=== PATIENT | female | born 1930 | race Caucasian/White ===

== ENCOUNTER 2018-09-04 16:51 | Emergency (ER) | payer MEDICARE, BC ==
--- NOTE | 2018-09-04 17:38 | EDM.PDOC ---
ED HPI GENERAL MEDICAL PROBLEM - General Chief Complaint: Gastrointestinal Problem Stated Complaint: SEVERE NAUSEA Time Seen by Provider: 09/04/18 17:38 Source of Information: Reports: Patient History Limitations: Reports: No Limitations - Related Data Allergies Allergy/AdvReac Type Severity Reaction Status Date / Time naproxen Allergy Nausea Verified 09/04/18 17:32 Penicillins Allergy Rash Verified 09/04/18 17:32 Home Meds: Home Meds Ascorbic Acid 500 mg PO DAILY 07/06/14 [History] Aspirin [Adult Low Dose Aspirin EC] 81 mg PO DAILY 07/06/14 [History] Calcium Carbonate/Vitamin D2 [Oyster Shell Calcium-Vit D Tab] 1 tab PO DAILY [History] Cholecalciferol (Vitamin D3) [Vitamin D3] 1,000 unit PO DAILY 07/06/14 [History] Clopidogrel [Plavix] 75 mg PO DAILY 07/06/14 [History] Furosemide [Lasix] 20 mg PO DAILY 07/06/14 [History] Isosorbide Mononitrate [Imdur] 90 mg PO DAILY 07/06/14 [History] Latanoprost [Xalatan 0.005% Ophth Soln] 1 drop EYEBOTH DAILY 07/06/14 [History] Metoprolol Succinate [Toprol XL] 25 mg PO DAILY 07/06/14 [History] Multivitamin [Multi Vitamin Daily] 1 tab PO DAILY 07/06/14 [History] Omeprazole 20 mg PO BID 07/06/14 [History] Psyllium with Sucrose [Metamucil] 1 packet PO DAILY 07/06/14 [History] Simvastatin [Zocor] 40 mg PO DAILY 07/06/14 [History] amLODIPine [Norvasc] 2.5 mg PO DAILY 07/06/14 [History] Departure - Discharge Information
[2018-09-04] MEDS ORDERED: Sodium Chloride 0.9% 10 ML Syringe FLUSH PRN (17:42)
[2018-09-04] MEDS ORDERED: Ondansetron 4 MG/2 ML SDV IV ONE (17:44)
[2018-09-04] MEDS ORDERED: diphenhydrAMINE 50 MG/ML SDV IVPUSH ONE (17:44)
--- NOTE | 2018-09-04 17:44 | EDM.PDOC ---
<OdonnellColt - Last Filed: 09/05/18 02:48> ED HPI GENERAL MEDICAL PROBLEM - General Chief Complaint: Gastrointestinal Problem Stated Complaint: SEVERE NAUSEA Time Seen by Provider: 09/04/18 17:38 - Related Data Allergies Allergy/AdvReac Type Severity Reaction Status Date / Time naproxen Allergy Nausea Verified 09/04/18 17:32 Penicillins Allergy Rash Verified 09/04/18 17:32 Home Meds: Home Meds Ascorbic Acid 500 mg PO DAILY 07/06/14 [History] Aspirin [Adult Low Dose Aspirin EC] 81 mg PO DAILY 07/06/14 [History] Calcium Carbonate/Vitamin D2 [Oyster Shell Calcium-Vit D Tab] 1 tab PO DAILY [History] Cholecalciferol (Vitamin D3) [Vitamin D3] 1,000 unit PO DAILY 07/06/14 [History] Clopidogrel [Plavix] 75 mg PO DAILY 07/06/14 [History] Furosemide [Lasix] 20 mg PO DAILY 07/06/14 [History] Isosorbide Mononitrate [Imdur] 90 mg PO DAILY 07/06/14 [History] Latanoprost [Xalatan 0.005% Ophth Soln] 1 drop EYEBOTH DAILY 07/06/14 [History] Metoprolol Succinate [Toprol XL] 25 mg PO DAILY 07/06/14 [History] Multivitamin [Multi Vitamin Daily] 1 tab PO DAILY 07/06/14 [History] Omeprazole 20 mg PO BID 07/06/14 [History] Psyllium with Sucrose [Metamucil] 1 packet PO DAILY 07/06/14 [History] Simvastatin [Zocor] 40 mg PO DAILY 07/06/14 [History] amLODIPine [Norvasc] 2.5 mg PO DAILY 07/06/14 [History] Course - Vital Signs Last Recorded V/S: Last Vital Signs Temp 36.9 C 09/04/18 21:22 Pulse 67 09/04/18 21:22 Resp 16 09/04/18 21:22 BP 174/77 H 09/04/18 21:22 Pulse Ox 94 L 09/04/18 21:22 - Orders/Labs/Meds Orders: Active Orders 24 hr Category Date Time Status EKG 12 Lead [EKG Documentation Completion] [RC] STAT Care 09/04/18 19:27 Active Peripheral IV Care [RC] . DIRECTED Care 09/04/18 17:43 Active Peripheral IV Insertion Adult [OM.PC] Stat Oth 09/04/18 17:42 Ordered Labs: Laboratory Tests 09/04/18 09/04/18 09/04/18 Range/Units 17:50 17:50 17:50 WBC 9.4 (5.0-10.0) 10^3/uL RBC 4.69 (4.2-5.4) 10^6/uL Hgb 15.3 (12.0-16.0) g/dL Hct 43.6 (37.0-47.0) % MCV 93.0 (80-100) fL MCH 32.6 (27.0-34.0) pg MCHC 35.1 H (33.0-35.0) g/dL Plt Count 205 (150-450) 10^3/uL Neut % (Auto) 90.8 H (42.2-75.2) % Lymph % (Auto) 6.0 L (20.5-50.1) % [place] % (Auto) 3.1 (2-8) % Eos % (Auto) 0.0 L (1.0-3.0) % Baso % (Auto) 0.1 (0.0-1.0) % Sodium 129 L (135-145) mmol/L Potassium 3.5 L (3.6-5.0) mmol/L Chloride 93 L (101-111) mmol/L Carbon Dioxide 19.0 L (21.0-31.0) mmol/L Anion Gap 20.5 BUN 15 (7-18) mg/dL Creatinine 0.8 (0.6-1.3) mg/dL Est Cr Clr Drug Dosing 42.78 mL/min Estimated GFR (MDRD) > 60 BUN/Creatinine Ratio 18.75 Glucose 182 H (74-105) mg/dL Lactic Acid 2.1 (0.5-2.2) mmol/L Calcium 9.6 (8.4-10.2) mg/dl Total Bilirubin 1.5 H (0.2-1.0) mg/dL AST 27 (10-42) IU/L ALT 16 (10-60) IU/L Alkaline Phosphatase 64 (42-121) IU/L Troponin I (0.00-0.02) ng/ml B-Natriuretic Peptide (0-100) pg/ml Total Protein 8.0 (6.7-8.2) g/dl Albumin 4.3 (3.2-5.5) g/dl Globulin 3.7 Albumin/Globulin Ratio 1.16 Lipase 20 L (22-51) U/L Urine Color (YELLOW) Urine Appearance (CLEAR) Urine pH (5.0-9.0) Ur Specific [place] (1.005-1.030) Urine Protein (NEGATIVE) Urine Glucose (UA) (NEGATIVE) Urine Ketones (NEGATIVE) Urine Occult Blood (NEGATIVE) Urine Nitrite (NEGATIVE) Urine Bilirubin (NEGATIVE) Urine Urobilinogen (0.2-1.0) mg/dL Ur Leukocyte Esterase (NEGATIVE) Urine RBC /HPF Urine WBC (0-5/HPF) /HPF Ur Epithelial Cells /HPF Urine Bacteria (0-FEW/HPF) /HPF Urine Mucus /LPF 09/04/18 09/04/18 Range/Units 17:50 21:15 WBC (5.0-10.0) 10^3/uL RBC (4.2-5.4) 10^6/uL Hgb (12.0-16.0) g/dL Hct (37.0-47.0) % MCV (80-100) fL MCH (27.0-34.0) pg MCHC (33.0-35.0) g/dL Plt Count (150-450) 10^3/uL Neut % (Auto) (42.2-75.2) % Lymph % (Auto) (20.5-50.1) % [place] % (Auto) (2-8) % Eos % (Auto) (1.0-3.0) % Baso % (Auto) (0.0-1.0) % Sodium (135-145) mmol/L Potassium (3.6-5.0) mmol/L Chloride (101-111) mmol/L Carbon Dioxide (21.0-31.0) mmol/L Anion Gap BUN (7-18) mg/dL Creatinine (0.6-1.3) mg/dL Est Cr Clr Drug Dosing mL/min Estimated GFR (MDRD) BUN/Creatinine Ratio Glucose (74-105) mg/dL Lactic Acid (0.5-2.2) mmol/L Calcium (8.4-10.2) mg/dl Total Bilirubin (0.2-1.0) mg/dL AST (10-42) IU/L ALT (10-60) IU/L Alkaline Phosphatase (42-121) IU/L Troponin I < 0.02 (0.00-0.02) ng/ml B-Natriuretic Peptide 280 H (0-100) pg/ml Total Protein (6.7-8.2) g/dl Albumin (3.2-5.5) g/dl Globulin Albumin/Globulin Ratio Lipase (22-51) U/L Urine Color Yellow (YELLOW) Urine Appearance Clear (CLEAR) Urine pH 7.0 (5.0-9.0) Ur Specific [place] 1.025 (1.005-1.030) Urine Protein 100 H (NEGATIVE) Urine Glucose (UA) 100 H (NEGATIVE) Urine Ketones 80 H (NEGATIVE) Urine Occult Blood Trace-intact H (NEGATIVE) Urine Nitrite Negative (NEGATIVE) Urine Bilirubin Negative (NEGATIVE) Urine Urobilinogen 0.2 (0.2-1.0) mg/dL Ur Leukocyte Esterase Negative (NEGATIVE) Urine RBC 0-5 /HPF Urine WBC 0-5 (0-5/HPF) /HPF Ur Epithelial Cells Rare /HPF Urine Bacteria Few (0-FEW/HPF) /HPF Urine Mucus Moderate H /LPF Meds: Medications Discontinued Medications Generic Name Dose Route Start Last Admin Trade Name Freq PRN Reason Stop Dose Admin Diphenhydramine HCl 12.5 mg 09/04/18 17:44 09/04/18 17:56 Benadryl IVPUSH 09/04/18 17:45 12.5 mg ONETIME ONE Administration Lactated Ringer's 1,000 mls @ 999 mls/hr 09/04/18 17:45 09/04/18 17:55 Ringers, Lactated IV 999 mls/hr ASDIRECTED GABRIEL Administration Pantoprazole Sodium 40 mg/ 100 mls @ 200 mls/hr 09/04/18 18:16 09/04/18 18:55 Sodium Chloride IV 09/04/18 18:45 200 mls/hr ONETIME ONE Administration Ondansetron HCl 4 mg 09/04/18 17:44 09/04/18 17:56 Zofran IV 09/04/18 17:45 4 mg ONETIME ONE Administration Promethazine HCl 25 mg 09/04/18 19:56 09/04/18 20:27 Phenergan IM 09/04/18 19:57 25 mg ONETIME ONE Administration Sodium Chloride 10 ml 09/04/18 17:42 09/04/18 18:55 Saline Flush FLUSH 10 ml ASDIRECTED PRN Administration Keep Vein Open - Re-Assessments/Exams Free Text/Narrative Re-Assessment/Exam: 09/04/18 22:40 results discussed with pt who states she is fine now. pt got up able to move without further vertigo or problems. states fine to go home and her son states he can be with her tonight and will recheck if there is any changes. states been having this problem on-off past few years and nobody seems to know how to rid of it. Departure - Departure Time of Disposition: 23:05 Disposition: Home, Self-Care 01 Condition: Fair Clinical Impression: Vertigo, Vomiting - Discharge Information Instructions: Vertigo, [id number] Referrals: PCP,None [Primary Care Provider] - Forms: ED Department Discharge Additional Instructions: 1) continue present meds 2) recheck if there is any change or concerns - My Orders Last 24 Hours: My Active Orders 09/04/18 17:42 Peripheral IV Insertion Adult [OM.PC] Stat 09/04/18 17:43 Peripheral IV Care [RC] . DIRECTED - Assessment/Plan Last 24 Hours: My Active Orders 09/04/18 17:42 Peripheral IV Insertion Adult [OM.PC] Stat 09/04/18 17:43 Peripheral IV Care [RC] . DIRECTED <Gautam Alston - Last Filed: 09/05/18 13:12> ED HPI GENERAL MEDICAL PROBLEM - General Source of Information: Reports: Patient History Limitations: Reports: No Limitations - History of Present Illness INITIAL COMMENTS - FREE TEXT/NARRATIVE: Patient comes to the emergency department today with complaints of nausea and vomiting. Since approximately 4:00 this morning she has had quite a bit of nausea and vomiting. She's been unable to keep anything down. She denies any abdominal pain. She denies any diarrhea. She denies any fever or chills. She has had many episodes of this in the past but is never been seen here for at and primarily gets most of her care in [place]. She has had her appendix removed. She still has her gallbladder. One else's been ill. She has not been traveling recently. No hematuria dysuria or urinary frequency. ED ROS GENERAL - Review of Systems Review Of Systems: ROS reveals no pertinent complaints other than HPI. ED EXAM, GI/ABD - Physical Exam Exam: See Below Exam Limited By: No Limitations General Appearance: Alert Eyes: Bilateral: Normal Appearance Ears: Normal External Exam, Normal TMs Nose: Normal Inspection Throat/Mouth: Normal Inspection, Normal Oropharynx Head: Atraumatic, Normocephalic Neck: Normal Inspection, Supple Respiratory/Chest: No Respiratory Distress, Lungs Clear, Normal Breath Sounds, No Accessory Muscle Use, Chest Non-Tender Cardiovascular: Normal Peripheral Pulses, Regular Rate, Rhythm GI/Abdominal Exam: Normal Bowel Sounds, Soft, Non-Tender, No Organomegaly, No Distention, No Abnormal Bruit, No Mass, Pelvis Stable Back Exam: Normal Inspection, Full Range of Motion. No: CVA Tenderness (L), CVA Tenderness (R) Extremities: Normal Inspection, Normal Range of Motion, Non-Tender, Normal Capillary Refill Neurological: Alert, Oriented, Normal Cognition, No Motor/Sensory Deficits Psychiatric: Normal Affect, Normal Mood Skin Exam: Dry, Intact, Cool, Pallor Lymphatic: No Adenopathy Course - Vital Signs Last Recorded V/S: Last Vital Signs Temp 36.9 C 09/04/18 21:22 Pulse 67 09/04/18 21:22 Resp 16 09/04/18 21:22 BP 174/77 H 09/04/18 21:22 Pulse Ox 94 L 09/04/18 21:22 - Orders/Labs/Meds Orders: Active Orders 24 hr Category Date Time Status EKG 12 Lead [EKG Documentation Completion] [RC] STAT Care 09/04/18 19:27 Active Peripheral IV Care [RC] . DIRECTED Care 09/04/18 17:43 Active Peripheral IV Insertion Adult [OM.PC] Stat Oth 09/04/18 17:42 Ordered Labs: Laboratory Tests 09/04/18 09/04/18 09/04/18 Range/Units 17:50 17:50 17:50 WBC 9.4 (5.0-10.0) 10^3/uL RBC 4.69 (4.2-5.4) 10^6/uL Hgb 15.3 (12.0-16.0) g/dL Hct 43.6 (37.0-47.0) % MCV 93.0 (80-100) fL MCH 32.6 (27.0-34.0) pg MCHC 35.1 H (33.0-35.0) g/dL Plt Count 205 (150-450) 10^3/uL Neut % (Auto) 90.8 H (42.2-75.2) % Lymph % (Auto) 6.0 L (20.5-50.1) % [place] % (Auto) 3.1 (2-8) % Eos % (Auto) 0.0 L (1.0-3.0) % Baso % (Auto) 0.1 (0.0-1.0) % Sodium 129 L (135-145) mmol/L Potassium 3.5 L (3.6-5.0) mmol/L Chloride 93 L (101-111) mmol/L Carbon Dioxide 19.0 L (21.0-31.0) mmol/L Anion Gap 20.5 BUN 15 (7-18) mg/dL Creatinine 0.8 (0.6-1.3) mg/dL Est Cr Clr Drug Dosing 42.78 mL/min Estimated GFR (MDRD) > 60 BUN/Creatinine Ratio 18.75 Glucose 182 H (74-105) mg/dL Lactic Acid 2.1 (0.5-2.2) mmol/L Calcium 9.6 (8.4-10.2) mg/dl Total Bilirubin 1.5 H (0.2-1.0) mg/dL AST 27 (10-42) IU/L ALT 16 (10-60) IU/L Alkaline Phosphatase 64 (42-121) IU/L Troponin I (0.00-0.02) ng/ml B-Natriuretic Peptide (0-100) pg/ml Total Protein 8.0 (6.7-8.2) g/dl Albumin 4.3 (3.2-5.5) g/dl Globulin 3.7 Albumin/Globulin Ratio 1.16 Lipase 20 L (22-51) U/L Urine Color (YELLOW) Urine Appearance (CLEAR) Urine pH (5.0-9.0) Ur Specific [place] (1.005-1.030) Urine Protein (NEGATIVE) Urine Glucose (UA) (NEGATIVE) Urine Ketones (NEGATIVE) Urine Occult Blood (NEGATIVE) Urine Nitrite (NEGATIVE) Urine Bilirubin (NEGATIVE) Urine Urobilinogen (0.2-1.0) mg/dL Ur Leukocyte Esterase (NEGATIVE) Urine RBC /HPF Urine WBC (0-5/HPF) /HPF Ur Epithelial Cells /HPF Urine Bacteria (0-FEW/HPF) /HPF Urine Mucus /LPF 09/04/18 09/04/18 Range/Units 17:50 21:15 WBC (5.0-10.0) 10^3/uL RBC (4.2-5.4) 10^6/uL Hgb (12.0-16.0) g/dL Hct (37.0-47.0) % MCV (80-100) fL MCH (27.0-34.0) pg MCHC (33.0-35.0) g/dL Plt Count (150-450) 10^3/uL Neut % (Auto) (42.2-75.2) % Lymph % (Auto) (20.5-50.1) % [place] % (Auto) (2-8) % Eos % (Auto) (1.0-3.0) % Baso % (Auto) (0.0-1.0) % Sodium (135-145) mmol/L Potassium (3.6-5.0) mmol/L Chloride (101-111) mmol/L Carbon Dioxide (21.0-31.0) mmol/L Anion Gap BUN (7-18) mg/dL Creatinine (0.6-1.3) mg/dL Est Cr Clr Drug Dosing mL/min Estimated GFR (MDRD) BUN/Creatinine Ratio Glucose (74-105) mg/dL Lactic Acid (0.5-2.2) mmol/L Calcium (8.4-10.2) mg/dl Total Bilirubin (0.2-1.0) mg/dL AST (10-42) IU/L ALT (10-60) IU/L Alkaline Phosphatase (42-121) IU/L Troponin I < 0.02 (0.00-0.02) ng/ml B-Natriuretic Peptide 280 H (0-100) pg/ml Total Protein (6.7-8.2) g/dl Albumin (3.2-5.5) g/dl Globulin Albumin/Globulin Ratio Lipase (22-51) U/L Urine Color Yellow (YELLOW) Urine Appearance Clear (CLEAR) Urine pH 7.0 (5.0-9.0) Ur Specific [place] 1.025 (1.005-1.030) Urine Protein 100 H (NEGATIVE) Urine Glucose (UA) 100 H (NEGATIVE) Urine Ketones 80 H (NEGATIVE) Urine Occult Blood Trace-intact H (NEGATIVE) Urine Nitrite Negative (NEGATIVE) Urine Bilirubin Negative (NEGATIVE) Urine Urobilinogen 0.2 (0.2-1.0) mg/dL Ur Leukocyte Esterase Negative (NEGATIVE) Urine RBC 0-5 /HPF Urine WBC 0-5 (0-5/HPF) /HPF Ur Epithelial Cells Rare /HPF Urine Bacteria Few (0-FEW/HPF) /HPF Urine Mucus Moderate H /LPF Meds: Medications Discontinued Medications Generic Name Dose Route Start Last Admin Trade Name Freq PRN Reason Stop Dose Admin Diphenhydramine HCl 12.5 mg 09/04/18 17:44 09/04/18 17:56 Benadryl IVPUSH 09/04/18 17:45 12.5 mg ONETIME ONE Administration Lactated Ringer's 1,000 mls @ 999 mls/hr 09/04/18 17:45 09/04/18 17:55 Ringers, Lactated IV 999 mls/hr ASDIRECTED GABRIEL Administration Pantoprazole Sodium 40 mg/ 100 mls @ 200 mls/hr 09/04/18 18:16 09/04/18 18:55 Sodium Chloride IV 09/04/18 18:45 200 mls/hr ONETIME ONE Administration Ondansetron HCl 4 mg 09/04/18 17:44 09/04/18 17:56 Zofran IV 09/04/18 17:45 4 mg ONETIME ONE Administration Promethazine HCl 25 mg 09/04/18 19:56 09/04/18 20:27 Phenergan IM 09/04/18 19:57 25 mg ONETIME ONE Administration Sodium Chloride 10 ml 09/04/18 17:42 09/04/18 18:55 Saline Flush FLUSH 10 ml ASDIRECTED PRN Administration Keep Vein Open - Re-Assessments/Exams Free Text/Narrative Re-Assessment/Exam: 09/04/18 19:[address] Odonnell at this time. - My Orders Last 24 Hours: My Active Orders 09/04/18 17:42 Peripheral IV Insertion Adult [OM.PC] Stat 09/04/18 17:43 Peripheral IV Care [RC] . DIRECTED - Assessment/Plan Last 24 Hours: My Active Orders 09/04/18 17:42 Peripheral IV Insertion Adult [OM.PC] Stat 09/04/18 17:43 Peripheral IV Care [RC] . DIRECTED
[2018-09-04] MEDS ORDERED: Lactated Ringers 1,000 ML IV SCH (17:45)
[2018-09-04] MEDS ORDERED: Pantoprazole 40 MG in Sodium Chloride 0.9% 100 ML IV ONE (18:16)
[2018-09-04 18:20] LABS: ANION GAP 20.5; CHLORIDE,CL 93 mmol/L (101-111); SODIUM,NA 129 mmol/L (135-145)
[2018-09-04] MEDS ORDERED: Promethazine 25 MG/ML SDV IM ONE (19:56)
[2018-09-04 21:23] VITALS: BP 174/77
== END 2018-09-04 23:05 | disposition home or self-care (01) ==
LOC: DL.ED 16:51
DX: R42 Dizziness and giddiness (principal); R11.2 Nausea with vomiting, unspecified; Z88.8 Allergy status to other drugs, medicaments and biological substances; Z88.0 Allergy status to penicillin; Z79.82 Long term (current) use of aspirin
CPT/HCPCS: 36415; 70450; 71045; 74019; 80053; 81001; 83605; 83690; 83880; 84484; 85025; 93005; 96361; 96372; 96374; 96375; 99285; C9113; J1200; J2405; J2550; J7050; J7120

== ENCOUNTER 2020-07-09 22:49 | Emergency (ER) | payer MEDICARE, BC ==
--- NOTE | 2020-07-09 23:12 | EDM.PDOC ---
ED HPI GENERAL MEDICAL PROBLEM - General Chief Complaint: Cardiovascular Problem Stated Complaint: HIGH BLOOD PRESSURE Time Seen by Provider: 07/09/20 23:10 Source of Information: Reports: Patient History Limitations: Reports: No Limitations - History of Present Illness INITIAL COMMENTS - FREE TEXT/NARRATIVE: states had BP check just before bedtime and was 200s/100s. denies CP/SOB/KOTHARI. denies stress - Related Data Allergies Allergy/AdvReac Type Severity Reaction Status Date / Time naproxen Allergy Nausea Verified 07/09/20 23:13 Penicillins Allergy Rash Verified 07/09/20 23:13 Home Meds: Home Meds Ascorbic Acid 500 mg PO DAILY 07/06/14 [History] Aspirin [Adult Low Dose Aspirin EC] 81 mg PO DAILY 07/06/14 [History] Calcium Carbonate/Vitamin D2 [Oyster Shell Calcium-Vit D Tab] 1 tab PO DAILY 07/06/14 [History] Cholecalciferol (Vitamin D3) [Vitamin D3] 1,000 unit PO DAILY 07/06/14 [History] Clopidogrel [Plavix] 75 mg PO DAILY 07/06/14 [History] Furosemide [Lasix] 20 mg PO DAILY 07/06/14 [History] Isosorbide Mononitrate [Imdur] 120 mg PO DAILY 07/06/14 [History] Latanoprost [Xalatan 0.005% Ophth Soln] 1 drop EYEBOTH DAILY 07/06/14 [History] Metoprolol Succinate [Toprol XL] 50 mg PO DAILY 07/06/14 [History] Multivitamin [Multi-Vitamin Daily] 1 tab PO DAILY 07/06/14 [History] Simvastatin [Zocor] 40 mg PO DAILY 07/06/14 [History] amLODIPine [Norvasc] 2.5 mg PO DAILY 07/06/14 [History] Famotidine 20 mg PO BID 01/15/19 [History] Potassium Chloride [Klor-Con 10] 10 meq PO TID 01/15/19 [History] Acetaminophen [Tylenol] 650 mg PO Q4H PRN tablet 01/16/19 [Rx] Meclizine [Antivert] 25 mg PO TID 10 Days #30 tablet 01/16/19 [Rx] Past Medical History HEENT History: Reports: Other (See Below) Other HEENT History: hard of hearing Cardiovascular History: Reports: Afib, High Cholesterol, Hypertension, Stents Respiratory History: Reports: SOB, Other (See Below) Other Respiratory History: Some SOB HAND I BLOCKER History: Reports: Other (See Below) Other HAND I BLOCKER History: ovary removed Neurological History: Reports: None Psychiatric History: Reports: None Endocrine/Metabolic History: Reports: Obesity/BMI 30+ Hematologic History: Reports: None Immunologic History: Reports: None Oncologic (Cancer) History: Reports: Breast Dermatologic History: Reports: None - Infectious Disease History Infectious Disease History: Reports: Chicken Pox, Measles, Mumps - Past Surgical History Cardiovascular Surgical History: Reports: Coronary Artery Stent, Other (See B elow) Other Cardiovascular Surgeries/Procedures: pacemaker GI Surgical History: Reports: Appendectomy Female Surgical History: Reports: Section, Other (See Below) Other Female Surgeries/Procedures: right breast lumpectomy Musculoskeletal Surgical History: Reports: Hip Replacement, Knee Replacement Oncologic Surgical History: Reports: Lumpectomy Social & Family History - Family History Family Medical History: No Pertinent Family History - Caffeine Use Caffeine Use: Reports: Coffee - Living Situation & Occupation Living situation: Reports: , Alone Occupation: Retired ED ROS GENERAL - Review of Systems Review Of Systems: Comprehensive ROS is negative, except as noted in HPI. ED EXAM, GENERAL - Physical Exam Exam: See Below Exam Limited By: No Limitations General Appearance: Alert, WD/WN, No Apparent Distress Ears: Hearing Grossly Normal Throat/Mouth: Normal Voice, No Airway Compromise Head: Atraumatic Neck: Non-Tender, Full Range of Motion Respiratory/Chest: No Respiratory Distress Cardiovascular: Regular Rate, Rhythm GI/Abdominal: Soft, Non-Tender (Female) Exam: Deferred Rectal (Female) Exam: Deferred Back Exam: Full Range of Motion Extremities: Normal Range of Motion Neurological: Alert, Oriented, Normal Cognition, Normal Gait, No Motor/Sensory Deficits Psychiatric: Normal Affect, Normal Mood Skin Exam: Warm, Dry, Normal Color Lymphatic: No Adenopathy Course - Vital Signs Last Recorded V/S: Last Vital Signs Temp 35.8 C L 07/09/20 23:07 Pulse 60 07/09/20 23:21 Resp 16 07/09/20 23:21 BP 148/81 H 07/09/20 23:21 Pulse Ox 98 07/09/20 23:21 - Orders/Labs/Meds Labs: Laboratory Tests 07/09/20 07/09/20 Range/Units 23:20 23:20 WBC 6.6 (5.0-10.0) 10^3/uL RBC 4.12 L (4.2-5.4) 10^6/uL Hgb 13.6 (12.0-16.0) g/dL Hct 39.2 (37.0-47.0) % MCV 95.1 (80-100) fL MCH 33.0 (27.0-34.0) pg MCHC 34.7 (33.0-35.0) g/dL Plt Count 188 (150-450) 10^3/uL Neut % (Auto) 64.5 (42.2-75.2) % Lymph % (Auto) 20.2 L (20.5-50.1) % [place] % (Auto) 11.8 H (2-8) % Eos % (Auto) 2.9 (1.0-3.0) % Baso % (Auto) 0.6 (0.0-1.0) % Sodium 129 L (136-145) mmol/L Potassium 4.0 (3.5-5.1) mmol/L Chloride 94 L (98-107) mmol/L Carbon Dioxide 27 (21-32) mmol/L Anion Gap 12.0 (7-13) mEq/L BUN 18 (7-18) mg/dL Creatinine 0.88 (0.55-1.02) mg/dL Est Cr Clr Drug Dosing 38.16 mL/min Estimated GFR (MDRD) > 60 BUN/Creatinine Ratio 20.5 (No establ ref range) Glucose 116 H (74-99) mg/dL Calcium 9.3 (8.5-10.1) mg/dL Total Bilirubin 0.7 (0.2-1.0) mg/dL AST 15 (15-37) U/L ALT 20 (14-59) U/L Alkaline Phosphatase 74 (46-116) U/L Troponin I < 0.017 (0.000-0.056) ng/mL Total Protein 7.5 (6.4-8.2) g/dL Albumin 4.0 (3.4-5.0) g/dL Globulin 3.5 Albumin/Globulin Ratio 1.1 - Re-Assessments/Exams Free Text/Narrative Re-Assessment/Exam: 07/09/20 23:51 results discussed with pt who is feeling more relaxed, not sure why her BP went up but presently 148/78 Departure - Departure Time of Disposition: 23:52 Disposition: Home, Self-Care 01 Condition: Good Clinical Impression: Hypertension Qualifiers: Hypertension type: unspecified Qualified Code(s): I10 - Essential (primary) hypertension Forms: ED Department Discharge Additional Instructions: 1) rest 2) continue routine meds 3) follow up with clinic Sepsis Event Note (ED) - Focused Exam Vital Signs: Vital Signs Temp Pulse Resp BP Pulse Ox 07/09/20 23:21 60 16 148/81 H 98 07/09/20 23:07 35.8 C L 70 18 180/80 H 98
[2020-07-09 23:22] VITALS: BP 148/81; PULSE 60
[2020-07-09 23:47] LABS: CHLORIDE,CL 94 mmol/L (98-107); SODIUM,NA 129 mmol/L (136-145)
== END 2020-07-09 23:59 | disposition home or self-care (01) ==
LOC: DL.ED 22:49
DX: I10 Essential (primary) hypertension (principal); I48.91 Unspecified atrial fibrillation; E78.00 Pure hypercholesterolemia, unspecified; E66.9 Obesity, unspecified; Z68.28 Body mass index [BMI] 28.0-28.9, adult; Z88.6 Allergy status to analgesic agent; Z88.0 Allergy status to penicillin; Z79.82 Long term (current) use of aspirin; Z79.02 Long term (current) use of antithrombotics/antiplatelets; Z79.899 Other long term (current) drug therapy
CPT/HCPCS: 36415; 80053; 84484; 85025; 99283

== ENCOUNTER 2021-06-29 21:17 | Inpatient (IN) | payer MEDICARE, BC ==
[2021-06-29 20:06] LABS: CORONAVIRUS COVID-19 NAA NEGATIVE (NEGATIVE)
[2021-06-29 20:41] LABS: ANION GAP 16.9 mEq/L (7-13); CHLORIDE,CL 84 mmol/L (98-107); SODIUM,NA 122 mmol/L (136-145)
[~2021-06-29 21:17] MED LIST: Sodium Chloride 3% 500 ML IV SCH
[2021-06-29] MEDS ORDERED: LORazepam 2 MG/ML SDV IVPUSH ONE (21:28)
[2021-06-29] MEDS ORDERED: Sodium Chloride 3% 100 ML IV SCH (21:52)
[2021-06-29 22:05] LABS: BARBITURATES,URINE NEGATIVE (NEGATIVE); BENZODIAZEPINE,URINE NEGATIVE (NEGATIVE); MDMA (ECSTASY), URINE NEGATIVE (NEGATIVE); METHADONE,URINE NEGATIVE (NEGATIVE); METHAMPHETAMINES,URINE NEGATIVE (NEGATIVE); OPIATES,URINE NEGATIVE (NEGATIVE); TCA,URINE NEGATIVE (NEGATIVE)
[2021-06-29 22:06] LABS: AMPHETAMINES,URINE NEGATIVE (NEGATIVE); OXYCODONE,URINE NEGATIVE (NEGATIVE); PHENCYCLIDINE,URINE NEGATIVE (NEGATIVE)
[2021-06-29] MEDS ORDERED: cefTRIAXone 2 GM in Sodium Chloride 0.9% 100 ML IV ONE (23:25)
[2021-06-29] MEDS ORDERED: Azithromycin 500 MG in Sodium Chloride 0.9% 250 ML IV ONE (23:25)
[2021-06-30 01:17] LABS: ANION GAP 17.7 mEq/L (7-13); CHLORIDE,CL 86 mmol/L (98-107); SODIUM,NA 123 mmol/L (136-145)
[2021-06-30] MEDS ORDERED: Sodium Chloride 3% 100 ML IV ONE (02:45)
[2021-06-30] MEDS ORDERED: Bisacodyl 5 MG Tab PO PRN (03:07)
[2021-06-30] MEDS ORDERED: Docusate Sodium 100 MG Cap PO PRN (03:07)
[2021-06-30] MEDS ORDERED: Ondansetron 4 MG/2 ML SDV IVPUSH PRN (03:07)
[2021-06-30] MEDS ORDERED: Acetaminophen 325 MG Tab PO PRN (03:07)
[2021-06-30] MEDS ORDERED: Nitroglycerin 0.4 MG Tab.SL SL PRN (03:21)
[2021-06-30] MEDS ORDERED: Potassium Chloride 10 MEQ Tab.ER PO ONE (03:25)
[2021-06-30 07:00] LABS: ANION GAP 16.9 mEq/L (7-13); CHLORIDE,CL 90 mmol/L (98-107); SODIUM,NA 124 mmol/L (136-145)
[2021-06-30] MEDS ORDERED: Enoxaparin 30 MG/0.3 ML Syringe SUBCUT SCH (09:00)
[2021-06-30] MEDS ORDERED: Sodium Chloride 3% 100 ML IV SCH (09:00)
[2021-06-30] MEDS: Aspirin 81 MG Tab.EC PO SCH (14:07)
[2021-06-30] MEDS: Enoxaparin 40 MG/0.4 ML Syringe SUBCUT SCH (14:10)
[2021-06-30] MEDS: Isosorbide Mononitrate 60 MG Tab.ER PO SCH (14:10)
[2021-06-30] MEDS: Clopidogrel 75 MG Tab PO SCH (14:11)
[2021-06-30] MEDS: amLODIPine 5 MG Tab PO SCH (14:11)
[2021-06-30] MEDS: Latanoprost 0.005% Ophth Soln 2.5 ML Bottle EYEBOTH SCH (14:12)
[2021-06-30] MEDS: Azithromycin 500 MG in Sodium Chloride 0.9% 250 ML IV SCH (20:51)
[2021-06-30] MEDS: Metoprolol Succinate 50 MG Tab.ER PO SCH (20:58)
[2021-06-30] MEDS: cefTRIAXone 2 GM in Sodium Chloride 0.9% 100 ML IV SCH (22:46)
[2021-07-01 06:55] LABS: ANION GAP 12.4 mEq/L (7-13); CHLORIDE,CL 91 mmol/L (98-107); SODIUM,NA 126 mmol/L (136-145)
[2021-07-01] MEDS: Clopidogrel 75 MG Tab PO SCH (08:53)
[2021-07-01] MEDS: amLODIPine 5 MG Tab PO SCH (08:54)
[2021-07-01] MEDS ORDERED: Psyllium Husk Powder Sugar Free 5.85 GM Packet PO PRN (08:54)
[2021-07-01] MEDS: Aspirin 81 MG Tab.EC PO SCH (08:54)
[2021-07-01] MEDS: Isosorbide Mononitrate 60 MG Tab.ER PO SCH (08:54)
[2021-07-01] MEDS: Enoxaparin 40 MG/0.4 ML Syringe SUBCUT SCH (08:55)
[2021-07-01] MEDS: Latanoprost 0.005% Ophth Soln 2.5 ML Bottle EYEBOTH SCH (08:55)
[2021-07-01] MEDS: Spironolactone 25 MG Tab PO SCH (09:44)
[2021-07-01] MEDS: Potassium Chloride 10 MEQ Tab.ER PO SCH ×3 (09:44→17:31)
[2021-07-01] MEDS: Ascorbic Acid 500 MG Tab PO SCH (09:45)
[2021-07-01] MEDS: Multivitamin Tab PO SCH (09:45)
[2021-07-01] MEDS: Calcium Carbonate 500 MG Tab.Chew PO SCH (09:46)
[2021-07-01] MEDS: Cholecalciferol (Vitamin D3) 25 MCG Tab PO SCH (09:46)
[2021-07-01] MEDS: Famotidine 20 MG Tab PO SCH ×2 (10:44→21:08)
[2021-07-01] MEDS: Nystatin Topical Powder 30 GM Bottle TOP SCH ×2 (10:45→21:25)
[2021-07-01] MEDS ORDERED: cefTRIAXone 2 GM Vial ONE (20:59)
[2021-07-01] MEDS ORDERED: Azithromycin 500 MG Vial ONE (20:59)
[2021-07-01] MEDS ORDERED: atorvaSTATin 20 MG Tab PO SCH (21:00)
[2021-07-01] MEDS ORDERED: Simvastatin 40 MG Tab PO SCH (21:00)
[2021-07-01] MEDS: cefTRIAXone 2 GM in Sodium Chloride 0.9% 100 ML IV SCH (21:09)
[2021-07-01] MEDS: Metoprolol Succinate 50 MG Tab.ER PO SCH (21:11)
[2021-07-01] MEDS: Azithromycin 500 MG in Sodium Chloride 0.9% 250 ML IV SCH (21:46)
[2021-07-02 07:17] LABS: ANION GAP 15.1 mEq/L (7-13); CHLORIDE,CL 94 mmol/L (98-107); SODIUM,NA 129 mmol/L (136-145)
[2021-07-02 08:08] VITALS: BP 168/80; PULSE 65
[2021-07-02] MEDS: Ascorbic Acid 500 MG Tab PO SCH (08:50)
[2021-07-02] MEDS: Isosorbide Mononitrate 60 MG Tab.ER PO SCH (08:50)
[2021-07-02] MEDS: Calcium Carbonate 500 MG Tab.Chew PO SCH (08:50)
[2021-07-02] MEDS: amLODIPine 5 MG Tab PO SCH (08:50)
[2021-07-02] MEDS: Clopidogrel 75 MG Tab PO SCH (08:51)
[2021-07-02] MEDS: Cholecalciferol (Vitamin D3) 25 MCG Tab PO SCH (08:51)
[2021-07-02] MEDS: Potassium Chloride 10 MEQ Tab.ER PO SCH (08:51)
[2021-07-02] MEDS: Spironolactone 25 MG Tab PO SCH (08:51)
[2021-07-02] MEDS: Famotidine 20 MG Tab PO SCH (08:51)
[2021-07-02] MEDS: Multivitamin Tab PO SCH (08:51)
[2021-07-02] MEDS: Enoxaparin 40 MG/0.4 ML Syringe SUBCUT SCH (08:51)
[2021-07-02] MEDS: Aspirin 81 MG Tab.EC PO SCH (08:51)
[2021-07-02] MEDS: Nystatin Topical Powder 30 GM Bottle TOP SCH (08:57)
[2021-07-02] MEDS: Latanoprost 0.005% Ophth Soln 2.5 ML Bottle EYEBOTH SCH (08:57)
== END 2021-07-02 11:30 | disposition home or self-care (01) | DRG 640 ==
LOC: DL.ED 21:17 → DL.MS 23:06
PROVIDERS: ADMIT Internal Medicine; ATTEND Internal Medicine
DX: E87.1 Hypo-osmolality and hyponatremia (principal); J18.9 Pneumonia, unspecified organism; I48.91 Unspecified atrial fibrillation; I48.20 Chronic atrial fibrillation, unspecified; I10 Essential (primary) hypertension; G93.40 Encephalopathy, unspecified; Z85.3 Personal history of malignant neoplasm of breast; E87.6 Hypokalemia; I25.10 Atherosclerotic heart disease of native coronary artery without angina pectoris; E78.5 Hyperlipidemia, unspecified; Z79.02 Long term (current) use of antithrombotics/antiplatelets; K21.9 Gastro-esophageal reflux disease without esophagitis; H91.90 Unspecified hearing loss, unspecified ear; E78.00 Pure hypercholesterolemia, unspecified; M19.90 Unspecified osteoarthritis, unspecified site; Z96.649 Presence of unspecified artificial hip joint; Z96.659 Presence of unspecified artificial knee joint; Z20.822 Contact with and (suspected) exposure to COVID-19; Z95.5 Presence of coronary angioplasty implant and graft; Z88.0 Allergy status to penicillin; Z88.8 Allergy status to other drugs, medicaments and biological substances; Z79.82 Long term (current) use of aspirin; Z79.899 Other long term (current) drug therapy; Z90.49 Acquired absence of other specified parts of digestive tract; Z95.0 Presence of cardiac pacemaker
CPT/HCPCS: 0240U; 36415; 70450; 71045; 80048; 80053; 80305; 81001; 82947; 83735; 83935; 84100; 84133; 84295; 84300; 84443; 85025; 86140; 97165; 97535; A9270-GY; J0456; J0696; J1650; J2060; J2405; J7050; J7131